=== PATIENT | female | born 1995 | race Caucasian/White ===

== ENCOUNTER 2018-08-15 12:02 | Emergency (ER) | payer OTHER ==
--- NOTE | 2018-08-15 12:38 | ED ---
Abdominal Pain HPI - General Chief Complaint: Abdominal Pain Stated Complaint: early /cramping Time Seen by Provider: 08/15/18 12:26 Source: patient, RN notes reviewed, old records reviewed Mode of arrival: ambulatory Limitations: no limitations - History of Present Illness Initial Comments: Patient is a 23-year-old female who presents emergency department today with chief complaint of left-sided abdominal pain. Early in . Patient that she is 2 days ago. Patient states that she is planning to follow- up with Dr. Meza but has not seen him yet. She is a female. Patient' s last menstrual period was the end of June, she's not sure exactly what date, approximately July 10. Patient reports no vaginal bleeding she does state she has vaginal discharge. She states that she's had no other symptoms at this time no nausea or vomiting or diarrhea. - Related Data Previous Rx's Medication Instructions Recorded Ykw-Uhev-Rvpci Acid 1 cap PO DAILY #20 cap 08/15/18 [-U Capsule (formulary)] Allergies Allergy/AdvReac Type Severity Reaction Status Date / Time No Known Allergies Allergy Verified 08/15/18 12:09 Review of Systems ROS Statement: Those systems with pertinent positive or pertinent negative responses have been documented in the HPI. ROS Other: All systems not noted in ROS Statement are negative. Past Medical History Additional Past Medical History / Comment(s): polycystic ovarian History of Any Multi-Drug Resistant Organisms: None Reported Past Surgical History: Appendectomy Additional Past Surgical History / Comment(s): cyst removal on ovaries Past Psychological History: No Psychological Hx Reported Smoking Status: Current some day smoker Past Alcohol Use History: Occasional Past Drug Use History: Marijuana General Exam - General Exam Comments Initial Comments: Patient is a pleasant 23-year-old female. Alert and oriented. Patient appears in no significant distress. Limitations: no limitations General appearance: alert, in no apparent distress Head exam: Present: atraumatic, normocephalic, normal inspection Eye exam: Present: normal appearance, PERRL, EOMI. Absent: scleral icterus, conjunctival injection, periorbital swelling ENT exam: Present: normal exam, mucous membranes moist Neck exam: Present: normal inspection. Absent: tenderness, meningismus, lymphadenopathy Respiratory exam: Present: normal lung sounds bilaterally. Absent: respiratory distress, wheezes, rales, rhonchi, stridor Cardiovascular Exam: Present: regular rate, normal rhythm, normal heart sounds. Absent: systolic murmur, diastolic murmur, rubs, gallop, clicks GI/Abdominal exam: Present: soft, normal bowel sounds. Absent: distended, tenderness, guarding, rebound, rigid External exam: Present: normal external exam Speculum exam: Present: normal speculum exam, vaginal discharge. Absent: cervical discharge, vaginal bleeding By manual exam: Present: normal by manual exam. Absent: cervical motion tenderness Extremities exam: Present: normal inspection, full ROM, normal capillary refill. Absent: tenderness, pedal edema, joint swelling, calf tenderness Back exam: Present: normal inspection Course Vital Signs 08/15/18 08/15/18 08/15/18 12:06 14:03 14:55 Temperature 97.7 F 98.1 F 98.1 F Pulse Rate 97 95 78 Respiratory 18 16 16 Rate Blood Pressure 108/72 110/64 105/62 O2 Sat by Pulse 100 100 Oximetry Medical Decision Making - Medical Decision Making Patient is a 23-year-old female who presents emergency department today with chief complaint of left-sided abdominal pain. Early in . Patient that she is 2 days ago. Patient states that she is planning to follow- up with Dr. Meza but has not seen him yet. She is a female. Patient' s last menstrual period was the end of June, she's not sure exactly what date, approximately July 10. Patient has no adnexal or abdominal tenderness. No bleeding on pelvic exam. US shows early gestational sac, recommended repeat US. Patient hcg level is 7400. Patient advised for close follow up with OB, starting and return parameters. Discussed repeat hcg level. - Lab Data Lab Results 08/15/18 08/15/18 08/15/18 Range/Units 12:42 12:42 12:43 HCG, Quant 7676.7 mIU/mL Urine Color Urine Appearance (Clear) Urine pH (5.0-8.0) Ur Specific [place] (1.001-1.035) Urine Protein (Negative) Urine Glucose (UA) (Negative) Urine Ketones (Negative) Urine Blood (Negative) Urine Nitrite (Negative) Urine Bilirubin (Negative) Urine Urobilinogen (<2.0) mg/dL Ur Leukocyte Esterase (Negative) Urine RBC (0-5) /hpf Urine WBC (0-5) /hpf Ur Squamous Epith Cells (0-4) /hpf Hyaline Casts (0-2) /lpf Urine Mucus (None) /hpf Urine HCG, Qual Detected (Not Detectd) Trichomonas Ag (Rapid) (Negative) Blood Type O Positive Blood Type Confirm Blood Type Recheck CABO Indicated 08/15/18 08/15/18 08/15/18 Range/Units 12:43 13:34 14:25 HCG, Quant mIU/mL Urine Color Yellow Urine Appearance Cloudy H (Clear) Urine pH 5.5 (5.0-8.0) Ur Specific [place] 1.019 (1.001-1.035) Urine Protein Negative (Negative) Urine Glucose (UA) Negative (Negative) Urine Ketones 2+ H (Negative) Urine Blood Negative (Negative) Urine Nitrite Negative (Negative) Urine Bilirubin Negative (Negative) Urine Urobilinogen <2.0 (<2.0) mg/dL Ur Leukocyte Esterase Negative (Negative) Urine RBC 1 (0-5) /hpf Urine WBC 4 (0-5) /hpf Ur Squamous Epith Cells 8 H (0-4) /hpf Hyaline Casts 1 (0-2) /lpf Urine Mucus Few H (None) /hpf Urine HCG, Qual (Not Detectd) Trichomonas Ag (Rapid) Negative (Negative) Blood Type Blood Type Confirm O Positive Blood Type Recheck - Radiology Data Radiology results: report reviewed Bicornate uterus. Probable early gestation. Short-term follow-up with positive or negative serial hCGs would be suggested. Disposition Clinical Impression: Abdominal pain affecting Disposition: HOME SELF-CARE Condition: Good Instructions: Abdominal Pain in (ED) Additional Instructions: Patient advised to repeat serum hCG level. Follow-up with [facility]. Take vitamins. Return to emergency department if any alarming signs or symptoms occur. Prescriptions: Cfa-Oqad-Kqldl Acid [-U Capsule (formulary)] 1 cap PO DAILY # 20 cap Is patient prescribed a controlled substance at d/c from ED?: No Referrals: None,Stated [Primary Care Provider] - 1-2 days Joselin Chow MD [STAFF PHYSICIAN] - 1-2 days Time of Disposition: 14:40
--- NOTE | 2018-08-15 13:37 | US ---
EXAMINATION TYPE: Transabdominal DATE OF EXAM: 01/13/18 COMPARISON: NONE CLINICAL HISTORY: Pain. LLQ pain with positive test EXAM PERFORMED: Transvaginal (TV) and Transabdominal (TA) EXAM MEASUREMENTS: GESTATIONAL AGE / DATING Physician Established: Not yet established Dates by LMP: (5 weeks/3 days) EDC: 04/14/2019 Dates by First Scan: No previous this is first scan Dates by Current Scan for: Unable to date by today's study MATERNAL ANATOMY Uterus: 8.1 x 4.5 x 8.6 cm Right Ovary: not identified Left Ovary: 3.1 x 2.3 x 3.1 cm Post CDS / Adnexa: small amount of free fluid Presence of corpus luteal cyst: there are two lesions on left ovary with peripheral flow, one measure s 1.8 x 1.5 x 1.6 cm, and the second one measures 2.1 x 1.5 x 1.9 cm. GESTATION / SURVEY CRL: not identified MSD: measures out of range Yolk Sac (normal less than 6mm): 0.2 cm Date of LMP: 07/08/2018 Beta HcG (if available): Not available at this time Uterus appears to be bicornuate. In the left horn there is a gestational sac and yolk sac, no p ole seen at this time. The left ovary contains two complex lesions. Probable early IUP, follow up rec ommended. IMPRESSION: 1. BICORNUATE UTERUS. 2. PROBABLE EARLY GESTATION. SHORT-TERM FOLLOW-UP +/- SERIAL BETA HCGS WOULD BE SUGGESTED.
[2018-08-15 14:05] VITALS: RESP 16; TEMP 98.1
[2018-08-15 14:27] LABS: Appearance,Urine Cloudy (Clear); Bilirubin,Urine Negative (Negative); Blood,Urine Negative (Negative); Color,Urine Yellow; Glucose,Urine (UA) Negative (Negative); Hyaline Casts,Urine 1 /lpf (0-2); Ketones,Urine 2+ (Negative); Leukocyte Esterase,Urine Negative (Negative); Mucus,Urine Few /hpf; Nitrite,Urine Negative (Negative); PH, Urine 5.5 (5.0-8.0); Protein,Urine Negative (Negative); RBC,Urine 1 /hpf (0-5); Specific Gravity,Urine 1.019 (1.001-1.035); Squamous Epithelial Cell,Urine 8 /hpf (0-4); Urobilinogen,Urine <2.0 mg/dL (<2.0); WBC,Urine 4 /hpf (0-5)
[2018-08-15 14:56] VITALS: BP 105/62; PULSE 78
[2018-08-16 12:08] LABS: C. trachomatis,PCR Negative (Neg,Equiv); Chlamydia trachomatis Source Vagina
[2018-08-16 12:09] LABS: N. gonorrhoeae,PCR Negative (Neg,Equiv); Neisseria Source Vagina
== END 2018-08-15 14:56 | disposition home or self-care (01) ==
LOC: EC 12:02
DX: O99.89 Other specified diseases and conditions complicating pregnancy, childbirth and the puerperium (principal); R10.9 Unspecified abdominal pain; N89.8 Other specified noninflammatory disorders of vagina; O34.00 Maternal care for unspecified congenital malformation of uterus, unspecified trimester; Q51.3 Bicornate uterus; O99.330 Smoking (tobacco) complicating pregnancy, unspecified trimester; F17.200 Nicotine dependence, unspecified, uncomplicated; Z90.49 Acquired absence of other specified parts of digestive tract; Z3A.00 Weeks of gestation of pregnancy not specified
CPT/HCPCS: 36415; 76801; 76817; 81001; 81025; 84702; 86900; 86901; 87070; 87205; 87491; 87591; 87808; 99284

== ENCOUNTER → 2018-08-26 | Outpatient (CLI) | payer OTHER ==
--- NOTE | 2018-08-27 07:15 | US ---
EXAMINATION TYPE: Transabdominal DATE OF EXAM: 01/13/18 COMPARISON: US 2017 CLINICAL HISTORY: Z36 Confirm dates. Confirm dates, 1 EXAM PERFORMED: Transabdominal (TA) EXAM MEASUREMENTS: GESTATIONAL AGE / DATING Physician Established: (7 weeks/2 days) EDC: 04/12/2019 Dates by LMP: (7 weeks/2 days) EDC: 04/12/2019 Dates by First Scan: Unable to date by 1st scan Dates by Current Scan for: ( 6 weeks/6 days) EDC: 04/15/2019 MATERNAL ANATOMY Uterus: 9.2 x 5.0 x 7.3cm, anteverted, possible bicornuate uterus Right Ovary: 2.1 x 1.3 x 1.9cm Left Ovary: 2.8 x 1.9 x 2.8cm Post CDS / Adnexa: wnl Presence of free fluid: no Presence of corpus luteal cyst: Left ovary: 2 lesions measuring 1.8 x 2.1 x 2.0cm and 2.0 x 1.6 x 1.6 cm Presence of subchorionic bleed: no GESTATION / SURVEY CRL: 0.9cm (6 weeks/6 days) Yolk Sac (normal less than 6mm): 3.2mm Heart Rate: 127 bpm Rhythm: Normal IUP: Viable IUP Date of LMP: 07/06/2018 Viable single IUP measuring 6 weeks 6 days with a heart rate of 127bpm and an estimated delivery date of 04/15/2019. IMPRESSION: Viable single IUP measuring 6 weeks 6 days with a heart rate of 127bpm and an estimated delivery date of 04/15/2019.
== END ==
LOC: RADUSMAIN 17:55
PROVIDERS: ATTEND Obstetrics & Gynecology
DX: Z36.89 Encounter for other specified antenatal screening (principal); Z3A.01 Less than 8 weeks gestation of pregnancy
CPT/HCPCS: 76801

== ENCOUNTER → 2018-11-16 | Outpatient (CLI) | payer OTHER ==
--- NOTE | 2018-11-16 12:47 | US ---
EXAMINATION TYPE: US OB anatomy transabd DATE OF EXAM: 11/16/2018 COMPARISON: US first trimester 2018 HISTORY: Large for dates 2nd trimester O36.62X0 Routine anatomy scan, 1 TECHNIQUE: Transabdominal (TA) EXAM MEASUREMENTS: GESTATIONAL AGE / DATING Physician Established: (18 weeks/4 days) EDC: 04/15/2019 Dates by LMP: Unknown Dates by First Scan: (18 weeks/4 days) EDC: 04/15/2019 Dates by Current Scan for: (18 weeks/5 days) EDC: 04/14/2019 SURVEY IUP: Single PLACENTA: Fundal/Posterior PREVIA: No previa GREGG: 10.2 cm Normal CERVICAL LENGTH (transabdominal: norm > 3.0cm): 3.2 cm BIOMETRY PRESENTATION: Vertex LIE: Longitudinal BPD: 4.4 cm 19 weeks / 2 days HC: 15.8 cm 18 weeks / 5 days AC: 13.6 cm 19 weeks / 0 days FL: 2.8 cm 18 weeks / 3 days ESTIMATED WEIGHT IN GRAMS: 255.4 grams ESTIMATED WEIGHT IN LBS/OZ: 0 lbs. 9 oz. WEIGHT PERCENTAGE BASED ON ESTABLISHED DATE: 56 % HC/AC: 1.16 Normal FL/AC: 20.38 HEART RATE: 147 bpm RHYTHM: Normal ANATOMY SEEN (within normal limits): * Lateral Vent (< 1 cm) 0.8 cm * Cisterna Magna (< 1.1 cm) 0.5 cm * Nuchal Fold (< 0.6 cm) 0.2 cm * Cerebellum (varies with age) 1.8 cm Choroid Plexus (bilateral) Midline Falx Cavus Septi Pellucidi Four Chamber Heart Outflow tracts: LVOT/RVOT Stomach Situs Nose / Lips Diaphragm Kidneys (bilateral) Bladder Cord Insert Three Vessel Cord Longitudinal Spine Transverse Spine Arms (bilateral) Legs (bilateral) Single live intrauterine gestation is redemonstrated. Normal cephalad presentation to fetus is seen. No cervical thinning is noted. No placenta previa is appreciated. Amniotic fluid index is calculated within normal limits. biometry measurements are congruent and felt within normal limits with satisfactory interval gr owth noted. Detailed anatomical survey shows no suspicious abnormality during real-time scanning. Sub optimal evaluation of left ventricular outflow track is seen on images saved as well as nose an d lips and bilateral kidneys. IMPRESSION: As above
== END | disposition home or self-care (01) ==
LOC: RADUSWWP 10:51
PROVIDERS: ATTEND Obstetrics & Gynecology
DX: O36.62X0 Maternal care for excessive fetal growth, second trimester, not applicable or unspecified (principal); Z3A.18 18 weeks gestation of pregnancy
CPT/HCPCS: 76811

== ENCOUNTER 2019-04-21 18:25 | Inpatient (IN) | payer OTHER ==
[2019-04-21] MEDS ORDERED: METHYLERGONOVINE 0.2 MG/ML 1 ML AMP IM PRN (19:41)
[2019-04-21] MEDS ORDERED: LIDOCAINE 0.5% (PF) 5 MG/ML (50 ML SDV) SQ PRN (19:41)
[2019-04-21] MEDS ORDERED: OXYTOCIN 10 UNIT/ML 1 ML VIAL IM PRN (19:41)
[2019-04-21] MEDS ORDERED: TERBUTALINE 1 MG/ML VIAL SQ PRN (19:41)
[2019-04-21] MEDS ORDERED: CARBOPROST TROMETHAMINE 250 MCG/ML 1 ML AMP IM PRN (19:41)
[2019-04-21] MEDS ORDERED: OXYTOCIN 30 UNITS/500 ML NS 30 UNIT in SALINE 1 500ML.BAG IV SCH (19:45)
[2019-04-21 19:55] LABS: Basophils % (A) 0 %; Eosinophils # (A) 0.3 k/uL (0-0.7); Eosinophils % (A) 2 %; HCT 34.3 % (34.0-46.0); HGB 11.7 gm/dL (11.4-16.0); Lymphocytes # (A) 1.8 k/uL (1.0-4.8); Lymphocytes % (A) 11 %; MCH 30.2 pg (25.0-35.0); MCHC 34.1 g/dL (31.0-37.0); MCV 88.6 fL (80.0-100.0); Mean Platelet Volume 8.8; Monocytes # (A) 0.6 k/uL (0-1.0); Monocytes % (A) 4 %; Neutrophils # (A) 13.3 k/uL (1.3-7.7); Neutrophils % (A) 82 %; Platelet Count 133 k/uL (150-450); RBC 3.87 m/uL (3.80-5.40); RDW 14.4 % (11.5-15.5); WBC 16.2 k/uL (3.8-10.6)
[2019-04-21 19:56] VITALS: BMI 29.3
[2019-04-21] MEDS: LACTATED RINGERS 1,000 ML IV SCH ×2 (20:06→20:57)
[2019-04-21] MEDS ORDERED: fentaNYL (PF) 50 MCG/ML 2 ML AMP ONE (20:30)
[2019-04-21] MEDS ORDERED: LACTATED RINGERS 1,000 ML BAG IV ONE (20:30)
[2019-04-21] MEDS ORDERED: OXYTOCIN 10 UNIT/ML 1 ML VIAL ONE (20:30)
[2019-04-21] MEDS ORDERED: MORPHINE SULFATE (PF) 0.3 MG/0.3 ML SYR ONE (20:30)
[2019-04-21] MEDS ORDERED: NALBUPHINE 10 MG/ML (1 ML AMP) ONE (20:30)
[2019-04-21] MEDS ORDERED: CITRIC ACID-SODIUM CITRATE 15 ML CUP PO ONE (21:06)
[2019-04-21] MEDS ORDERED: ceFAZolin IN SWFI 2 GM/20 ML SYRINGE IVP ONE (21:06)
[2019-04-21] MEDS ORDERED: ZOLPIDEM 5 MG TAB PO PRN (21:49)
[2019-04-21] MEDS ORDERED: LANOLIN CREAM 5 GM TUBE TOPICAL PRN (21:49)
[2019-04-21] MEDS ORDERED: diphenhydrAMINE 50 MG/ML 1 ML VIAL IVP PRN ×2 (21:49)
[2019-04-21] MEDS ORDERED: diphenhydrAMINE 50 MG CAP PO PRN (21:49)
[2019-04-21] MEDS ORDERED: ACETAMINOPHEN TAB 325 MG TAB PO PRN (21:49)
[2019-04-21] MEDS ORDERED: METOCLOPRAMIDE 5 MG/ML 2 ML VIAL IVP PRN (21:49)
[2019-04-21] MEDS ORDERED: ONDANSETRON 4 MG/2 ML VIAL IVP PRN (21:49)
[2019-04-21] MEDS ORDERED: diphenhydrAMINE 25 MG CAP PO PRN (21:49)
[2019-04-21] MEDS ORDERED: NALOXONE 0.4 MG/ML 1 ML VIAL IV PRN (21:49)
--- NOTE | 2019-04-21 21:54 | P.HPOB ---
History of Present Illness H&P Date: 04/21/19 Chief Complaint: labor 23-year-old presents at 40 weeks and 6 days in labor. She is kendall every 2-4 minutes. heart tones are 135 with moderate variability and reactive. Her cervix was 2 cm dilated when she initially presented to triage and changed to 3 cm, 90% effaced, and -2 station. Review of Systems All systems: negative Constitutional: Denies chills, Denies fever Eyes: denies blurred vision, denies pain Ears, nose, mouth and throat: Denies headache, Denies sore throat Cardiovascular: Denies chest pain, Denies shortness of breath Respiratory: Denies cough Gastrointestinal: Denies abdominal pain, Denies diarrhea, Denies nausea, Denies vomiting Genitourinary: Denies dysuria, Denies hematuria Musculoskeletal: Denies myalgias Integumentary: Denies pruritus, Denies rash Neurological: Denies numbness, Denies weakness Psychiatric: Denies anxiety, Denies depression Endocrine: Denies fatigue, Denies weight change Past Medical History Additional Past Medical History / Comment(s): polycystic ovarian History of Any Multi-Drug Resistant Organisms: None Reported Past Surgical History: Appendectomy Additional Past Surgical History / Comment(s): cyst removal on ovaries Past Anesthesia/Blood Transfusion Reactions: No Reported Reaction Past Psychological History: No Psychological Hx Reported Smoking Status: Current every day smoker Past Alcohol Use History: Occasional Past Drug Use History: Marijuana - Past Family History Mother Family Medical History: Diabetes Mellitus Father Family Medical History: Blood Disorder Additional Family Medical History / Comment(s): stated per pt, "father from blood clots." Medications and Allergies Home Medications Medication Instructions Recorded Confirmed Type Acyclovir 400 mg PO TID 03/30/19 04/21/19 History Allergies Allergy/AdvReac Type Severity Reaction Status Date / Time No Known Allergies Allergy Verified 04/21/19 18:32 Exam Osteopathic Statement: *. No significant issues noted on an osteopathic structural exam other than those noted in the History and Physical/Consult. Vital Signs Temp Pulse Resp BP 04/21/19 19:41 98.2 F 20 04/21/19 18:33 98.2 F 88 18 128/84 Intake and Output 04/21/19 04/21/19 04/21/19 06:59 14:59 22:59 Other: Weight 77.564 kg Heart: Regular rate and rhythm Lungs: Clear to auscultation bilaterally Abdomen: Soft, nontender Extremities: Negative Homans sign Results Result Diagrams: 04/21/19 19:43 Abnormal Lab Results - Last 24 Hours (Table) 04/21/19 Range/Units 19:43 WBC 16.2 H (3.8-10.6) k/uL Plt Count 133 L (150-450) k/uL Neutrophils # 13.3 H (1.3-7.7) k/uL Assessment and Plan (1) Normal labor Current Visit: Yes Status: Acute Code(s): O80 - ENCOUNTER FOR FULL-TERM UNCOMPLICATED DELIVERY; Z37.9 - OUTCOME OF DELIVERY, UNSPECIFIED SNOMED Code(s): 45106437 (2) Post-dates Current Visit: Yes Status: Acute Code(s): O48.0 - POST-TERM SNOMED Code(s): 37245016 Plan: 1. Admit to family place 2. Epidural for pain management 3. Anticipate normal vaginal delivery
--- NOTE | 2019-04-21 21:58 | P.OP ---
Date of Procedure: 04/21/19 Preoperative Diagnosis: 1. at 40 weeks and 6 days 2. Meconium-stained fluid 3. Category 3 tracing Postoperative Diagnosis: 1. at 40 weeks and 6 days 2. Meconium-stained fluid 3. Category 3 tracing Procedure(s) Performed: Primary low transverse Anesthesia: epidural Surgeon: Nikki Noriega Fisher Terrapin #1: Quin Lloyd Estimated Blood Loss (ml): 600 IV fluids (ml): 1,000 Urine output (ml): 200 Pathology: other (Placenta) Condition: stable Disposition: floor Indications for Procedure: 23-year-old presented at 40 weeks and 6 days in labor. Her cervix was 3 cm dilated, 90% effaced, -2 station. She is kendall irregularly every 2-4 minutes. heart tones were 140 with moderate variability and reactive. Amniotomy was performed and meconium stained fluid was seen. After she did get an epidural the heart tones went down to the 60s with slow return to baseline over 5 minutes. She had a few variable decelerations prior to this and with the meconium-stained fluid the decision was made to perform section. Informed consent was obtained and section was called. Operative Findings: Viable infant weight 6 lbs. 9 oz., Apgars pending Description of Procedure: Patient was taken to the operating room where spinal anesthesia was found be adequate. She was prepped and draped in normal sterile fashion in dorsal supine position with a leftward tilt. Pfannenstiel skin incision was made the scalpel and carried through to the underlying layer of fascia with the scalpel. Fascia was incised in midline and carried bilaterally with the Sanders scissors. The superior aspect of the fascial incision was grasped with Astrid clamps elevated and the underlying rectus muscles dissected off with the Sanders's. Attention was then turned to inferior aspect of same incision which in a similar fashion was grasped tented up and the underlying rectus muscles dissected off with the Sanders's. The rectus muscles were the midline and the peritoneum was identified tented up and entered sharply with the scalpel. The incision was extended superiorly and inferiorly with good visualization of the bladder. The bladder blade was inserted. A low transverse incision was then made on the uterus with the scalpel. This was carried bilaterally and digital manner. 's head delivered atraumatically, nose and mouth bulb suctioned, cord clamped and cut, handed off to waiting nurses. Apgars pending, weight 6 lbs. 9 oz. Placenta delivered manually, intact with three-vessel cord. The uterus is exteriorized and cleared of all clots and debris. The uterine incision was closed with 0 Vicryl in a running locked fashion. Second layer of the same sutures used in imbricating fashion to obtain excellent hemostasis. Both ovaries and tubes appeared normal. The uterus was placed back into the abdomen. The peritoneum was reapproximated using 2-0 Vicryl in a running fashion. The muscles were reapproximated using 2-0 Vicryl in interrupted fashion. The fascia was reapproximated using 0 Vicryl in a running fashion. The subcutaneous tissues closed with 3-0 Vicryl running fashion. The skin was closed emilia. Patient tolerated the procedure well, sponge and instrument counts were correct times 2 and she was taken to the recovery room in stable condition.
[2019-04-21] MEDS ORDERED: OXYTOCIN 20 UNITS/1000 ML NS 1,000 ML IV SCH (22:00)
[2019-04-21] MEDS ORDERED: LACTATED RINGERS 1,000 ML IV SCH (22:00)
[2019-04-22] MEDS: KETOROLAC 30 MG/ML 1 ML VIAL IVP PRN ×3 (05:24→17:11)
--- NOTE | 2019-04-22 06:06 | P.PNOBGPC ---
Subjective - Subjective Patient reports: Reports appetite normal, Reports voiding normally, Reports pain well controlled, Reports ambulating normally : doing well Objective - Vital Signs Latest vital signs: Vital Signs Temp Pulse Resp BP BP Pulse Ox 04/22/19 04:00 98.2 F 92 18 109/59 99 04/22/19 00:00 98.1 F 106 H 18 119/56 99 04/21/19 23:30 103 H 18 107/54 04/21/19 23:24 110 H 110/56 04/21/19 23:00 98.2 F 107 H 18 115/50 04/21/19 22:48 109 H 18 120/65 04/21/19 22:45 98.8 F 107 H 18 113/53 100 04/21/19 22:30 97.6 F 98 20 81/32 100 04/21/19 22:25 101/54 04/21/19 22:23 104/48 04/21/19 22:20 96 18 86/61 100 04/21/19 22:14 97.4 F L 92 18 101/54 100 04/21/19 22:12 97.4 F L 91 18 101/54 100 04/21/19 22:10 96/55 04/21/19 22:08 86 18 92/53 100 04/21/19 22:05 106/53 04/21/19 22:03 128/53 04/21/19 22:00 97.0 F L 83 18 80/40 99 04/21/19 21:56 100 91/43 04/21/19 19:41 98.2 F 20 04/21/19 18:33 98.2 F 88 18 128/84 Intake and Output 04/21/19 04/21/19 04/22/19 14:59 22:59 06:59 Intake Total 2000 1000 Output Total 800 1750 Balance 1200 -750 Intake: IV 2000 1000 Oxytocin 20 Units/1000 ml 1000 Ns 1,000 ml @ Per Protocol IV .Q0M [facility] Rx#: [id number] Output: Urine 200 1750 Uretheral (Armas) 300 Estimated Blood Loss 600 Other: Voiding Method Indwelling Catheter Weight 77.564 kg - Exam Lungs: bilateral: normal Chest: Normal S1, Normal S2 Extremities: Present: normal Abdomen: Present: normal appearance, soft. Absent: distention, tenderness Incision: Present: normal, dry, intact Uterus: Present: normal, firm - Labs Labs: Abnormal Lab Results - Last 24 Hours (Table) 04/21/19 Range/Units 19:43 WBC 16.2 H (3.8-10.6) k/uL Plt Count 133 L (150-450) k/uL Neutrophils # 13.3 H (1.3-7.7) k/uL Assessment and Plan Assessment: Postoperative day #1. Patient is resting without complaints. Vital signs are stable she is afebrile. Uterus is firm nontender and her incision is intact and dry. Plan today is to advance diet, encourage ambulation, and check a CBC. (1) delivery delivered Current Visit: Yes Status: Acute Code(s): O82 - ENCOUNTER FOR DELIVERY WITHOUT INDICATION SNOMED Code(s): 352276116
[2019-04-22 07:18] LABS: Basophils % (A) 0 %; Eosinophils % (A) 0 %; HCT 29.3 % (34.0-46.0); Lymphocytes # (A) 0.6 k/uL (1.0-4.8); Lymphocytes % (A) 5 %; MCH 29.6 pg (25.0-35.0); MCHC 33.2 g/dL (31.0-37.0); Mean Platelet Volume 9.3; Monocytes # (A) 0.4 k/uL (0-1.0); Monocytes % (A) 3 %; Neutrophils % (A) 91 %; Platelet Count 106 k/uL (150-450); RBC 3.29 m/uL (3.80-5.40); RDW 14.6 % (11.5-15.5); WBC 12.1 k/uL (3.8-10.6)
[2019-04-22 07:29] LABS: HGB 9.7 gm/dL (11.4-16.0)
--- NOTE | 2019-04-22 08:37 | P.PN ---
Progress Note - Text Progress Note Date: 04/22/19 Pt w/ moderate pain. Some pruritis. Denies headache or weakness. Epidural site clean and dry. A/P POD#1 s/p w/ epidural duramorph - doing well
[2019-04-22] MEDS: SENNOSIDES-DOCUSATE SODIUM 1 EACH TAB PO SCH ×2 (11:28→19:57)
[2019-04-22] MEDS: HYDROcodone/APAP 7.5-325MG 1 EACH TAB PO PRN ×2 (15:41→21:24)
[2019-04-22] MEDS: IBUPROFEN 600 MG TAB PO PRN (23:54)
[2019-04-23] MEDS: SIMETHICONE 80 MG CHEWABLE PO PRN ×2 (00:04→07:58)
[2019-04-23] MEDS: HYDROcodone/APAP 7.5-325MG 1 EACH TAB PO PRN ×3 (04:24→20:23)
--- NOTE | 2019-04-23 06:08 | P.PNOBGPC ---
Subjective - Subjective Patient reports: Reports appetite normal, Reports voiding normally, Reports pain well controlled, Reports ambulating normally : doing well Objective - Vital Signs Latest vital signs: Vital Signs Temp Pulse Resp BP BP Pulse Ox 04/23/19 00:00 97.8 F 89 14 114/74 99 04/22/19 16:00 97.8 F 88 16 114/67 04/22/19 11:54 97.6 F 88 18 112/68 98 04/22/19 07:40 98.1 F 90 16 104/65 Intake and Output 04/22/19 04/22/19 04/23/19 14:59 22:59 06:59 Other: # Voids 1 1 1 - Exam Lungs: bilateral: normal Chest: Normal S1, Normal S2 Extremities: Present: normal Abdomen: Present: normal appearance, soft. Absent: distention, tenderness Incision: Present: normal, dry, intact Uterus: Present: normal, firm - Labs Labs: Abnormal Lab Results - Last 24 Hours (Table) 04/22/19 Range/Units 06:36 WBC 12.1 H (3.8-10.6) k/uL RBC 3.29 L (3.80-5.40) m/uL Hgb 9.7 L D (11.4-16.0) gm/dL Hct 29.3 L (34.0-46.0) % Plt Count 106 L (150-450) k/uL Neutrophils # 11.0 H (1.3-7.7) k/uL Lymphocytes # 0.6 L (1.0-4.8) k/uL Assessment and Plan Assessment: Post operative day #2. Patient is resting without new complaints. She is having some abdominal discomfort and exam shows her abdomen be mildly distended consistent with a mild ileus. She states she is passing gas and tolerating regular diet. CBC yesterday was fine. Vital signs are stable she is afebrile. Incision is intact and dry. My impression this is a mild postoperative ileus which appears to be resolving but I encouraged her to ambulate today. Continue routine postoperative care most likely discharge home tomorrow if continues to improve. Dr. Noriega we'll see tomorrow. (1) delivery delivered Current Visit: Yes Status: Acute Code(s): O82 - ENCOUNTER FOR DELIVERY WITHOUT INDICATION SNOMED Code(s): 885281828
[2019-04-23] MEDS: SENNOSIDES-DOCUSATE SODIUM 1 EACH TAB PO SCH ×2 (07:56→19:35)
[2019-04-23] MEDS: IBUPROFEN 600 MG TAB PO PRN ×2 (07:57→17:48)
--- NOTE | 2019-04-23 08:13 | P.MSEPDOC ---
Presenting Problems - Arrival Data Date of Arrival on Unit: 04/21/19 Time of Arrival on Unit: 19:30 Mode of Transport: Wheelchair - Complaint OB-Reason for Admission/Chief Complaint: Possible Onset of Labor Comment: 04/21/19 1400 Medical History - Information : 1 Para: 0 Term: 0 : 0 Abortions: Spontaneous or Elective: 0 Number of Living Children: 0 - Gestational Age Gestational Age by DAVID (wks/days): 42 Weeks and 0 Days - History Complications: Smoker Sexually Transmitted Diseases: HSV Review of Systems - Review of Systems Constitutional: No problems Breast: No problems ENT: No problems Cardiovascular: No problems Respiratory: No problems Gastrointestinal: No problems Genitourinary: No problems Musculoskeletal: No problems Neurological: No problems Skin: No problems Vital Signs - Temperature Temperature: 97.9 F Temperature Source: Oral - Pulse Right Sitting Pulse Rate: 98 Pulse Assessment Method: Automatic Cuff - Respirations Respiratory Rate: 16 Oxygen Delivery Method: Room Air O2 Sat by Pulse Oximetry: 97 - Blood Pressure Right Arm Blood Pressure: 108/67 Blood Pressure Mean: 80 Blood Pressure Source: Automatic Cuff Right Calf Blood Pressure: 114/67 Blood Pressure Mean: 82 Blood Pressure Source: Automatic Cuff Medical Screen Scoring (Pre) - Cervical Exam Dilation: 1-3 cm = 1 Effacement: More than 50% = 2 Membranes: Intact - Uterine Contractions Frequency: > 5 minutes apart = 1 Duration: > 40 seconds = 2 Intensity: N/A - Maternal Vital Signs Maternal Temperature: N/A Maternal Blood Pressure: N/A Signs of Preeclampsia: N/A Maternal Respirations: N/A - Maternal Trauma Maternal Trauma: N/A - Assessment - Baby A Baseline FHR: 140 Heart Rate - NICHD Category: Category I (Normal) = 0 NST: Reactive Position: N/A Station: N/A - Total Score - Baby A Total Score - Baby A: 6 - Total Score - Baby B Total Score - Baby B: 6 - Total Score - Baby C Total Score - Baby C: 6 - Level of Risk - Baby A Level of Risk - Baby A: Medium (6-9) - Level of Risk - Baby B Level of Risk - Baby B: Medium (6-9) - Level of Risk - Baby C Level of Risk - Baby C: Medium (6-9) Physician Notification (Pre) - Physician Notified New Order Received: No Disposition - Disposition OB Disposition: Observe, Triage I agree with the RN Medical Screening Exam: Yes Risk & Benefit of care provided described in d/c instruction: Yes Diagnosis: ENCOUNTER FOR FULL-TERM UNCOMPLICATED DELIVERY
[2019-04-24] MEDS: IBUPROFEN 600 MG TAB PO PRN ×2 (01:22→09:25)
[2019-04-24] MEDS: HYDROcodone/APAP 7.5-325MG 1 EACH TAB PO PRN (03:33)
[2019-04-24 07:47] VITALS: BP 112/82; PULSE 94; RESP 16; TEMP 97.6
[2019-04-24] MEDS: SENNOSIDES-DOCUSATE SODIUM 1 EACH TAB PO SCH (07:51)
--- NOTE | 2019-04-24 08:50 | P.DS ---
Providers Date of admission: 04/21/19 19:30 Expected date of discharge: 04/24/19 Attending physician: Declan Newsome Primary care physician: Stated None - Discharge Diagnosis(es) (1) Normal labor Current Visit: Yes Status: Resolved (2) Post-dates Current Visit: Yes Status: Resolved (3) Status post primary low transverse section Current Visit: Yes Status: Acute Hospital Course: Patient presented in labor postdates. She underwent a primary low transverse C- section for heart tones and meconium fluid. Her postoperative course went well. She is voiding and ambulating without difficulty. Pain is well- controlled. She did have some gas pain and postoperative day #2 but then after passing lots of flatus she feels much better today. She is tolerating regular diet. Incision is clean, dry, intact. She will be discharged home postoperative day #3 in stable condition to follow-up with Dr. Newsome in one week. Plan - Discharge Summary New Discharge Prescriptions: New Ibuprofen [Motrin] 600 mg PO Q6HR PRN #40 tab PRN Reason: Mild Pain Or Fever >= 100.5 HYDROcodone/APAP 7.5-325MG [[place] 7.5-325] 1 each PO Q6H PRN #12 tab PRN Reason: Severe Pain No Action Acyclovir 400 mg PO TID Discharge Medication List Acyclovir 400 mg PO TID 03/30/19 [History] HYDROcodone/APAP 7.5-325MG [[place] 7.5-325] 1 each PO Q6H PRN #12 tab 04/23/19 [Rx] Ibuprofen [Motrin] 600 mg PO Q6HR PRN #40 tab 04/23/19 [Rx] Follow up Appointment(s)/Referral(s): Declan Newsome MD [STAFF PHYSICIAN] - 1 Week Patient Instructions/Handouts: (DC) Activity/Diet/Wound Care/Special Instructions: No heavy lifting or strenuous activity for 6 weeks. No intercourse or anything per vagina for 6 weeks. Please call if any fever, chills, excessive vaginal bleeding, and/or abdominal pain. Discharge Disposition: HOME SELF-CARE
== END 2019-04-24 12:07 | disposition home or self-care (01) | DRG 787 ==
LOC: FBPOP 18:25 → 4FBP 19:30
PROVIDERS: ADMIT Obstetrics & Gynecology; ATTEND Obstetrics & Gynecology
PROC: 10D00Z1 Extraction of Products of Conception, Low, Open Approach (ICD-10-PCS; principal; 2019-04-21 20:30)
DX: O48.0 Post-term pregnancy (principal); K56.7 Ileus, unspecified; O76 Abnormality in fetal heart rate and rhythm complicating labor and delivery; O77.0 Labor and delivery complicated by meconium in amniotic fluid; O99.284 Endocrine, nutritional and metabolic diseases complicating childbirth; E28.2 Polycystic ovarian syndrome; Z3A.40 40 weeks gestation of pregnancy; Z37.0 Single live birth; O99.334 Smoking (tobacco) complicating childbirth; F17.200 Nicotine dependence, unspecified, uncomplicated; L29.9 Pruritus, unspecified; Z79.899 Other long term (current) drug therapy; Z83.3 Family history of diabetes mellitus; Z83.2 Family history of diseases of the blood and blood-forming organs and certain disorders involving the immune mechanism
CPT/HCPCS: 59025; 85025; 86850; 86900; 86901; 88307; 99213

== ENCOUNTER → 2020-08-25 | Outpatient (CLI) | payer OTHER ==
--- NOTE | 2020-08-25 10:56 | XR ---
EXAMINATION TYPE: XR wrist complete 4 views RT, XR hand complete 3 views RT DATE OF EXAM: 08/25/2020 COMPARISON: NONE HISTORY: 25-year-old female S66.219A, M65.4 FINDINGS: Wrist: The radiocarpal and distal radioulnar joint as well as the midcarpal compartment are intact. No acute fracture, subluxation, dislocation. Hand: Joint spaces are maintained. No acute fracture, subluxation, dislocation. No periostitis or osteolysi s. No soft tissue calcifications. IMPRESSION: Wrist and hand without acute osseous abnormality seen.
== END | disposition home or self-care (01) ==
LOC: RADXRMAIN 10:30
PROVIDERS: ATTEND Emergency Medicine
DX: M65.4 Radial styloid tenosynovitis [de Quervain] (principal); S66.219A Strain of extensor muscle, fascia and tendon of unspecified thumb at wrist and hand level, initial encounter

== ENCOUNTER 2022-05-08 21:08 | Emergency (ER) | payer BC, OTHER ==
[2022-05-08 21:15] VITALS: BP 115/72; PULSE 84; RESP 20; TEMP 98.5
--- NOTE | 2022-05-08 21:34 | ED ---
Female Urogenital HPI - General Chief complaint: Vaginal Bleeding Stated complaint: pregant w/bleeding Time Seen by Provider: 05/08/22 21:33 Source: patient, family Mode of arrival: ambulatory Limitations: no limitations - History of Present Illness Initial comments: This patient is a 26-year-old woman, , presenting with bilateral leg cramping and intermittent bleeding. The patient states the amount of bleeding is less than a period. She has not passed any clots. She found out she was over the weekend, she took 4 home tests that were positive. Patient states that the cramping is moderate intensity, intermittent, she states it is currently not present she declines analgesic during history and physical. No fever or chills. No change in urination or bowel movements. No leg pain or swelling. MD Complaint: vaginal bleeding Onset/Timin -: days(s) Severity: moderate Quality: cramping Consistency: intermittent Improves with: none Worsens with: none Patient : Yes - Related Data : 2 Para: 1 Home Medications Medication Instructions Recorded Confirmed Citalopram Hydrobromide 40 mg PO HS 05/08/22 05/08/22 [Citalopram HBr] Dicyclomine HCl 10 mg PO TID PRN 05/08/22 05/08/22 Ferrous Sulfate [Feosol] 325 mg PO HS 05/08/22 05/08/22 Allergies Allergy/AdvReac Type Severity Reaction Status Date / Time No Known Allergies Allergy Verified 05/08/22 22:26 Review of Systems ROS Statement: Those systems with pertinent positive or pertinent negative responses have been documented in the HPI. ROS Other: All systems not noted in ROS Statement are negative. Constitutional: Denies: fever, chills Respiratory: Denies: cough, dyspnea Cardiovascular: Denies: chest pain, palpitations Gastrointestinal: Reports: as per HPI, abdominal pain. Denies: nausea, vomiting, diarrhea, constipation Genitourinary: Reports: as per HPI, abnormal menses. Denies: urgency, dysuria, frequency, hematuria, discharge Musculoskeletal: Denies: back pain Skin: Denies: rash Neurological: Denies: headache, weakness Hematological/Lymphatic: Denies: easy bleeding Past Medical History Additional Past Medical History / Comment(s): polycystic ovarian, IBS History of Any Multi-Drug Resistant Organisms: None Reported Past Surgical History: Appendectomy, Section Additional Past Surgical History / Comment(s): cyst removal on ovaries Past Anesthesia/Blood Transfusion Reactions: No Reported Reaction Past Psychological History: Anxiety, Depression Smoking Status: Vaper Past Alcohol Use History: Occasional Past Drug Use History: Marijuana - Past Family History Mother Family Medical History: Diabetes Mellitus Father Family Medical History: Blood Disorder Additional Family Medical History / Comment(s): stated per pt, "father passed aw ay from blood clots." General Exam Limitations: no limitations General appearance: alert, in no apparent distress Head exam: Present: atraumatic, normocephalic Eye exam: Present: normal appearance. Absent: scleral icterus, conjunctival injection Respiratory exam: Present: normal lung sounds bilaterally. Absent: respiratory distress, wheezes, rales, rhonchi, stridor Cardiovascular Exam: Present: regular rate, normal rhythm, normal heart sounds. Absent: systolic murmur, diastolic murmur, rubs, gallop GI/Abdominal exam: Present: soft. Absent: distended, tenderness, guarding, rebound, rigid, mass Extremities exam: Present: normal inspection, normal capillary refill. Absent: pedal edema, calf tenderness Back exam: Present: normal inspection. Absent: CVA tenderness (R), CVA tenderness (L) Neurological exam: Present: alert Skin exam: Present: warm, dry, intact, normal color. Absent: rash Course Vital Signs 05/08/22 21:10 Temperature 98.5 F Pulse Rate 84 Respiratory 20 Rate Blood Pressure 115/72 O2 Sat by Pulse 98 Oximetry Medical Decision Making - Medical Decision Making Patient's 26-year-old woman with some first trimester vaginal bleeding. The hCG is very low and I discussed with the patient that we probably will not find anything significant on the ultrasound. As her symptoms have for the home resolved, she will follow up for repeat hCG and probable ultrasound. The patient states she will call her roll bucker, Dr. Newsome and plans to see him in 2 days. We discussed the appropriate return parameters. - Lab Data Lab Results 05/08/22 05/08/22 05/08/22 Range/Units 21:59 22:10 22:10 HCG, Quant 23.1 mIU/mL Urine Color Yellow Urine Appearance Clear (Clear) Urine pH 6.0 (5.0-8.0) Ur Specific [place] 1.020 (1.001-1.035) Urine Protein Negative (Negative) Urine Glucose (UA) Negative (Negative) Urine Ketones Trace H (Negative) Urine Blood Large H (Negative) Urine Nitrite Negative (Negative) Urine Bilirubin Negative (Negative) Urine Urobilinogen <2.0 (<2.0) mg/dL Ur Leukocyte Esterase Negative (Negative) Urine RBC <1 (0-5) /hpf Urine WBC 5 (0-5) /hpf Ur Squamous Epith Cells 3 (0-4) /hpf Urine Bacteria Rare H (None) /hpf Urine Mucus Rare H (None) /hpf Blood Type O Positive Blood Type Recheck O Pos Bld Type Recheck Status No Disposition Clinical Impression: Threatened Disposition: HOME SELF-CARE Condition: Good Instructions (If sedation given, give patient instructions): Threatened Miscarriage (ED) Is patient prescribed a controlled substance at d/c from ED?: No Referrals: Vitor Grimes DO [Primary Care Provider] - 1-2 days
[2022-05-08 22:34] LABS: Appearance,Urine Clear (Clear); Bacteria,Urine Rare /hpf; Bilirubin,Urine Negative (Negative); Blood,Urine Large (Negative); Color,Urine Yellow; Glucose,Urine (UA) Negative (Negative); Ketones,Urine Trace (Negative); Leukocyte Esterase,Urine Negative (Negative); Mucus,Urine Rare /hpf; Nitrite,Urine Negative (Negative); Protein,Urine Negative (Negative); RBC,Urine <1 /hpf (0-5); Squamous Epithelial Cell,Urine 3 /hpf (0-4); Urobilinogen,Urine <2.0 mg/dL (<2.0); WBC,Urine 5 /hpf (0-5)
== END 2022-05-08 23:51 | disposition home or self-care (01) ==
LOC: EC 21:08
DX: O20.0 Threatened abortion (principal); O99.330 Smoking (tobacco) complicating pregnancy, unspecified trimester; Z3A.00 Weeks of gestation of pregnancy not specified; F17.290 Nicotine dependence, other tobacco product, uncomplicated; Z67.40 Type O blood, Rh positive
CPT/HCPCS: 36415; 81001; 84702; 86900; 86901; 99284

== ENCOUNTER → 2022-05-20 | Outpatient (CLI) | payer BC, OTHER | END | disposition home or self-care (01) | LOC: LABWHC1 07:54 | PROVIDERS: ATTEND Obstetrics & Gynecology | DX: O03.9 Complete or unspecified spontaneous abortion without complication (principal); Z3A.00 Weeks of gestation of pregnancy not specified | CPT/HCPCS: 36415; 84702 ==

== ENCOUNTER → 2022-05-21 | Outpatient (CLI) | payer BC, OTHER ==
[2022-05-21 15:45] LABS: Albumin 4.5 g/dL (3.5-5.0); Albumin/Globulin Ratio 1.7; Bilirubin,Unconjugated 0.1 mg/dL (0.0-1.1); Globulin 2.7 g/dL; Total Bilirubin 0.3 mg/dL (0.2-1.3); Total Protein 7.2 g/dL (6.3-8.2)
== END | disposition home or self-care (01) ==
LOC: LABPAT 14:46
PROVIDERS: ATTEND Obstetrics & Gynecology
DX: O03.4 Incomplete spontaneous abortion without complication (principal)
CPT/HCPCS: 80076; 86850; 86900; 86901

== ENCOUNTER → 2022-05-22 | Outpatient (CLI) | payer BC, OTHER ==
[~2022-05-22] MED LIST: METHOTREXATE SODIUM (PF) 25 MG/ML 2 ML VIAL IM NR
[2022-05-22 14:27] VITALS: BP 120/64; PULSE 85; RESP 16; TEMP 97.8
== END ==
LOC: PROCWHC3 14:21
PROVIDERS: ATTEND Obstetrics & Gynecology
DX: O00.90 Unspecified ectopic pregnancy without intrauterine pregnancy (principal); O99.330 Smoking (tobacco) complicating pregnancy, unspecified trimester; F17.200 Nicotine dependence, unspecified, uncomplicated; Z3A.00 Weeks of gestation of pregnancy not specified
CPT/HCPCS: 96402; J9260

== ENCOUNTER → 2022-05-29 | Outpatient (CLI) | payer BC, OTHER | END | disposition home or self-care (01) | LOC: LABWHC1 08:35 | PROVIDERS: ATTEND Obstetrics & Gynecology | DX: O03.9 Complete or unspecified spontaneous abortion without complication (principal) | CPT/HCPCS: 36415; 84702 ==

== ENCOUNTER → 2022-06-12 | Outpatient (CLI) | payer BC, OTHER ==
[2022-06-12 11:20] VITALS: BP 124/72; PULSE 85; RESP 16; TEMP 98.1
== END ==
LOC: PROCWHC3 10:55
PROVIDERS: ATTEND Obstetrics & Gynecology
DX: O00.90 Unspecified ectopic pregnancy without intrauterine pregnancy (principal); Z3A.00 Weeks of gestation of pregnancy not specified
CPT/HCPCS: 96402; J9260

== ENCOUNTER → 2022-06-12 | Outpatient (CLI) | payer BC, OTHER ==
[2022-06-12 09:26] LABS: HCT 37.3 % (34.0-46.0); HGB 12.2 gm/dL (11.4-16.0); MCH 30.8 pg (25.0-35.0); MCHC 32.6 g/dL (31.0-37.0); MCV 94.4 fL (80.0-100.0); Mean Platelet Volume 8.5; Platelet Count 149 k/uL (150-450); RBC 3.95 m/uL (3.80-5.40); RDW 14.6 % (11.5-15.5); WBC 4.1 k/uL (3.8-10.6)
== END | disposition home or self-care (01) ==
LOC: LABWHC1 08:54
PROVIDERS: ATTEND Obstetrics & Gynecology
DX: O00.90 Unspecified ectopic pregnancy without intrauterine pregnancy (principal)
CPT/HCPCS: 36415; 84702; 85027

== ENCOUNTER → 2022-07-25 | Outpatient (CLI) | payer BC, OTHER ==
[2022-07-26 05:02] LABS: Cancer Antigen 125 9.2 U/mL (0.0-30.1); HCG,Quantitative Serum <3.0 (0.0-6.0)
== END | disposition home or self-care (01) ==
LOC: LABWHC1 16:02
PROVIDERS: ATTEND Obstetrics & Gynecology
DX: N83.209 Unspecified ovarian cyst, unspecified side (principal)
CPT/HCPCS: 36415; 84702; 86304

== ENCOUNTER 2022-12-30 12:34 | Emergency (ER) | payer BC, OTHER ==
--- NOTE | 2022-12-30 14:52 | ED ---
Female Urogenital HPI - General Source: patient, RN notes reviewed Mode of arrival: ambulatory Limitations: no limitations - History of Present Illness MD Complaint: vaginal bleeding, pelvic pain Onset/Timin -: days(s) <Alexia Levin - Last Filed: 12/30/22 14:50> <Ana Pan - Last Filed: 12/30/22 23:12> - General Chief complaint: Vaginal Bleeding Stated complaint: miscarriage complications Time Seen by Provider: 12/30/22 14:17 - History of Present Illness Initial comments: This is a 27-year-old female who presents to the emergency department for vaginal bleeding pelvic cramping. Patient had a miscarriage approximately 6 days ago and she was about 8 weeks along at the time. She has continued to have very heavy bleeding and left lower quadrant pain/cramping. Denies any associated nausea/vomiting. She spoke with her SAMPLE BOOK MAKER, Dr. Newsome, who advised she come to the emergency department for evaluation to ensure that there are no retained products. Denies any chest pain, SOB, or back pain. (Alexia Levin) Quick note reviewed: This is a 27-year-old female who presents to the emergency department with a chief complaint of vaginal bleeding. Patient reports that she was told she was having a miscarriage approximately 6 days ago. She reports that she is approximately 8 weeks along. She reports that she has had continued bleeding and left lower quadrant pain. She denies any headache, dizziness, lightheadedness, shortness of breath, palpitations. She reports that her SAMPLE [employer] MAKER Dr. Newsome. She reports that Dr. Newsome recommended she be evaluated in order to get a pelvic ultrasound to rule out any retained products of conception. (Ana Pan) - Related Data Home Medications Medication Instructions Recorded Confirmed Citalopram Hydrobromide 40 mg PO HS 05/08/22 12/30/22 [Citalopram HBr] Ferrous Sulfate [Feosol] 325 mg PO HS 05/08/22 12/30/22 Allergies Allergy/AdvReac Type Severity Reaction Status Date / Time No Known Allergies Allergy Verified 12/30/22 12:46 Review of Systems ROS Other: All systems not noted in ROS Statement are negative. <Alexia Levin - Last Filed: 12/30/22 14:50> ROS Other: All systems not noted in ROS Statement are negative. <PauloadryAna zepeda - Last Filed: 12/30/22 23:12> ROS Statement: Those systems with pertinent positive or pertinent negative responses have been documented in the HPI. Past Medical History Additional Past Medical History / Comment(s): polycystic ovarian, IBS History of Any Multi-Drug Resistant Organisms: None Reported Past Surgical History: Appendectomy, Section Additional Past Surgical History / Comment(s): cyst removal on ovaries Past Anesthesia/Blood Transfusion Reactions: No Reported Reaction Past Psychological History: Anxiety, Depression Smoking Status: Vaper Past Alcohol Use History: Occasional Past Drug Use History: Marijuana - Past Family History Mother Family Medical History: Diabetes Mellitus Father Family Medical History: Blood Disorder Additional Family Medical History / Comment(s): stated per pt, "father from blood clots." <Alexia Levin - Last Filed: 12/30/22 14:50> General Exam Limitations: no limitations General appearance: alert, in no apparent distress Head exam: Present: atraumatic, normocephalic, normal inspection Respiratory exam: Present: normal lung sounds bilaterally. Absent: respiratory distress, wheezes, rales, rhonchi, stridor Cardiovascular Exam: Present: regular rate, normal rhythm, normal heart sounds. Absent: systolic murmur, diastolic murmur, rubs, gallop, clicks GI/Abdominal exam: Present: soft, tenderness (LLQ), normal bowel sounds. Absent: distended Neurological exam: Present: alert, oriented X3, CN II-XII intact Psychiatric exam: Present: normal affect, normal mood Skin exam: Present: warm, dry, intact, normal color. Absent: rash <Alexia Levin - Last Filed: 12/30/22 14:50> General appearance: alert, in no apparent distress Head exam: Present: atraumatic, normocephalic, normal inspection Eye exam: Present: normal appearance, PERRL, EOMI. Absent: scleral icterus, conjunctival injection, periorbital swelling ENT exam: Present: normal exam, mucous membranes moist Neck exam: Present: normal inspection. Absent: tenderness, meningismus, lymphadenopathy Respiratory exam: Present: normal lung sounds bilaterally. Absent: respiratory distress, wheezes, rales, rhonchi, stridor Cardiovascular Exam: Present: regular rate, normal rhythm, normal heart sounds. Absent: systolic murmur, diastolic murmur, rubs, gallop, clicks GI/Abdominal exam: Present: soft, normal bowel sounds. Absent: distended, tenderness, guarding, rebound, rigid Speculum exam: Present: other (external exam is without any rashes, lesions, erythema. Vaginal canal with scant blood, and clearable clots. Cervical os is visualized and is closed. no cervical motion tenderness or adnexal tenderness. Pelvic exam performed with Tran song RN present. ) Extremities exam: Present: normal inspection, full ROM, normal capillary refill. Absent: tenderness, pedal edema, joint swelling, calf tenderness Back exam: Present: normal inspection Neurological exam: Present: alert, oriented X3, CN II-XII intact Psychiatric exam: Present: normal affect, normal mood Skin exam: Present: warm, dry, intact, normal color. Absent: rash <Ana Pan - Last Filed: 12/30/22 23:12> Course Vital Signs 12/30/22 12/30/22 12/30/22 12:44 15:30 16:42 Temperature 97.9 F Pulse Rate 80 78 81 Respiratory 18 17 17 Rate Blood Pressure 123/76 116/71 118/75 O2 Sat by Pulse 99 96 97 Oximetry 12/30/22 18:08 Temperature 98.2 F Pulse Rate 77 Respiratory 16 Rate Blood Pressure 112/72 O2 Sat by Pulse 96 Oximetry Medical Decision Making - Radiology Data Radiology results: report reviewed, image reviewed <Alexia Levin - Last Filed: 12/30/22 14:50> - Lab Data Result diagrams: 12/30/22 15:09 12/30/22 15:09 <Ana Pan - Last Filed: 12/30/22 23:12> - Medical Decision Making This is a 27-year-old female who presents to the emergency department for vaginal bleeding. Was pt. sent in by a medical professional or institution? @ -No Did you speak to anyone other than the patient for history? @ -No Did you review nursing and triage notes? @ -Yes, and I agree, it is accurate with regards to the patient's symptoms. Were old charts reviewed? @ -No Differential Diagnosis? @ -Differential Vaginal Bleeding: Spontaneous , threatened , molar , ectopic , incompetent cervix, placenta previa, uterine rupture, dysfunctional uterine bleeding, hemorrhage, uterine fibroids, malignancy, coagulopathy, PID, cervicitis, adenomyosis, vaginal trauma, this is not meant to be an all-inclusive list. CT interpreted by me (1pt min.)? @ -[none] U/S interpreted by me (1pt. min.)? @ -[none] What testing was considered but not performed? (CT, X-rays, U/S, labs)? Why? @ -None What meds were considered but not given? Why? @ -None Did you discuss the management of the patient with other professionals? @ -No Did you reconcile home meds? @ -No Was smoking cessation discussed for >3mins.? @ -No Was critical care preformed (if so, how long)? @ -No Were there social determinants of health that impacted care today? How? (Homelessness, low income, unemployed, alcoholism, drug addiction, transportation, low edu. Level, literacy, decrease access to med. care, usp, rehab)? @ -No Was there de-escalation of care discussed even if they declined? (Discuss DNR or withdrawal of care, Hospice)? @ -No What co-morbidities impacted this encounter? (DM, HTN, Smoking, COPD, CAD, Cancer, CVA, Hep., AIDS, mental health diagnosis, sleep apnea, morbid obesity)? @ -[DM, HTN, Smoking, COPD, CAD, Cancer, CVA, Hep., AIDS, mental health diagnosis, sleep apnea, morbid obesity?] Was patient admitted / discharged? @ -[hospital course] Undiagnosed new problem with uncertain prognosis? @ -None Drug Therapy requiring intensive monitoring for toxicity (Heparin, Nitro, Insulin, Cardizem)? @ -None Were any procedures done? @ -None Diagnosis/symptom? @ -[default] Acute, or Chronic, or Acute on Chronic? @ -[default] Uncomplicated (without systemic symptoms) or Complicated (systemic symptoms)? @ -[default] Side effects of treatment? @ -[none] Exacerbation, Progression, or Severe Exacerbation] @ -Not applicable Poses a threat to life or bodily function? @ -[no] (Alexia Levin) Was pt. sent in by a medical professional or institution (Dr., PA, INFORMATION SYSTEMS ARCHITECT, urgent care, hospital, or senior living...) When possible be specific @ -[No] Did you speak to anyone other than the patient for history (EMS, parent, family, police, friend...)? What history was obtained from this source @ -[No] Did you review nursing and triage notes (agree or disagree)? Why? @ -[I reviewed and agree with nursing and triage notes] Were old charts reviewed (outside hosp., previous admission, EMS record, old EKG, old radiological studies, urgent care reports/EKG's, senior living records)? Report findings @ -[No old charts were reviewed] Differential Diagnosis (chest pain, altered mental status, abdominal pain women, abdominal pain men, vaginal bleeding, weakness, fever, dyspnea, syncope, headache, dizziness, GI bleed, back pain, seizure, CVA, palpatations, mental health, musculoskeletal)? @ -[not applicable] EKG interpreted by me (3pts min.). @ -[As above] X-rays interpreted by me (1pt min.). @ -[None done] CT interpreted by me (1pt min.). @ -[None done] U/S interpreted by me (1pt. min.). @ -[None done] What testing was considered but not performed or refused? (CT, X-rays, U/S, labs)? Why? @ -[None] What meds were considered but not given or refused? Why? @ -[None] Did you discuss the management of the patient with other professionals (professionals i.e. MELISSA Daniels, INFORMATION SYSTEMS ARCHITECT, lab, RT, psych nurse, social contact worker, americanization teacher, teacher, community liaison officer, rn case manager)? Give summary @ -Case discussed with Dr. Thrasher, SAMPLE BOOK MAKER on-call who recommends the patient has beta hCG levels drawn in 48 hours to ensure levels are trending down Was smoking cessation discussed for >3mins.? @ -[No] Was critical care preformed (if so, how long)? @ -[No] Were there social determinants of health that impacted care today? How? (Homelessness, low income, unemployed, alcoholism, drug addiction, transportation, low edu. Level, literacy, decrease access to med. care, usp, rehab)? @ -[No] Was there de-escalation of care discussed even if they declined (Discuss DNR or withdrawal of care, Hospice)? DNR status @ -[No] What co-morbidities impacted this encounter? (DM, HTN, Smoking, COPD, CAD, Cancer, CVA, ARF, Chemo, Hep., AIDS, mental health diagnosis, sleep apnea, morbid obesity)? @ -[None] Was patient admitted / discharged? Hospital course, mention meds given and route, prescriptions, significant lab abnormalities, going to OR and other pertinent info. @ -Discharged. This is a 27-year-old female who presents the emergency department with chief complaint of vaginal bleeding. Patient had a thorough history and physical exam performed while in the ED. Physical exam is essentially unremarkable heart rate regular rate and rhythm, lungs clear to auscultation bilaterally abdomen is soft and nontender. Pelvic exam reveals small amount of blood in the vaginal canal with clearable clots, cervical os is open. There is no adnexal tenderness. Patient's vital signs remained stable while in the ED. Patient had lab work and imaging performed: Labs remarkable for WBC 7.3, hemoglobin 13.2, coags within normal limits, BMP unremarkable BUN 10, creatinine 0.47 Urinalysis with large amount of blood and greater than 182 RBCs likely due to patient's vaginal bleeding Pelvic ultrasound results reveals Heterogeneous thickened endometrium that measures up to 1.5 cm thick there is no associated vascularity I discussed the results in detail with the patient verbalized understanding. All questions and concerns were addressed. Return precautions were discussed at length. She was encouraged to have a serial hCG level drawn in 48 hours. She was encouraged to follow up with her SAMPLE BOOK MAKER tomorrow. She was discharged in stable condition. Case discussed with TATI Carreon who agrees with plan of care Undiagnosed new problem with uncertain prognosis? @ -[No] Drug Therapy requiring intensive monitoring for toxicity (Heparin, Nitro, Insulin, Cardizem)? @ -[No] Were any procedures done? @ -[No] Diagnosis/symptom? @ -vaginal bleeding - missed Acute, or Chronic, or Acute on Chronic? @ -acute Uncomplicated (without systemic symptoms) or Complicated (systemic symptoms)? @ -uncomplicated Side effects of treatment? @ -[No] Exacerbation, Progression, or Severe Exacerbation? @ -[No] Poses a threat to life or bodily function? How? (Chest pain, [place], [place], pneumonia, PE, COPD, DKA, ARF, appy, cholecystitis, CVA, Diverticulitis, Homicidal, Suicidal, threat to staff... and all critical care pts) @ -low likelihood (Ana Pan) - Lab Data Lab Results 12/30/22 12/30/22 12/30/22 Range/Units 15:09 15:09 15:09 WBC 7.3 (3.8-10.6) k/uL RBC 4.05 (3.80-5.40) m/uL Hgb 13.2 (11.4-16.0) gm/dL Hct 38.6 (34.0-46.0) % MCV 95.2 (80.0-100.0) fL MCH 32.5 (25.0-35.0) pg MCHC 34.1 (31.0-37.0) g/dL RDW 12.2 (11.5-15.5) % Plt Count 158 (150-450) k/uL MPV 8.5 Neutrophils % 71 % Lymphocytes % 22 % Monocytes % 4 % Eosinophils % 2 % Basophils % 1 % Neutrophils # 5.2 (1.3-7.7) k/uL Lymphocytes # 1.6 (1.0-4.8) k/uL Monocytes # 0.3 (0-1.0) k/uL Eosinophils # 0.2 (0-0.7) k/uL Basophils # 0.1 (0-0.2) k/uL PT (9.0-12.0) sec INR (<1.2) APTT (22.0-30.0) sec Sodium 138 (137-145) mmol/L Potassium 4.2 (3.5-5.1) mmol/L Chloride 111 H (98-107) mmol/L Carbon Dioxide 22 (22-30) mmol/L Anion Gap 5 mmol/L BUN 10 (7-17) mg/dL Creatinine 0.47 L (0.52-1.04) mg/dL Est GFR (CKD-EPI)AfAm >90 (>60 ml/min/1.73 sqM) Est GFR (CKD-EPI)NonAf >90 (>60 ml/min/1.73 sqM) Glucose 85 (74-99) mg/dL Calcium 8.8 (8.4-10.2) mg/dL Total Bilirubin 0.3 (0.2-1.3) mg/dL AST 92 H (14-36) U/L ALT 138 H (4-34) U/L Alkaline Phosphatase 60 (38-126) U/L Total Protein 6.7 (6.3-8.2) g/dL Albumin 4.0 (3.5-5.0) g/dL HCG, Quant 1549.7 mIU/mL Urine Color Light Red Urine Appearance Cloudy H (Clear) Urine pH 6.0 (5.0-8.0) Ur Specific [place] 1.031 (1.001-1.035) Urine Protein 2+ H (Negative) Urine Glucose (UA) Negative (Negative) Urine Ketones Negative (Negative) Urine Blood Large H (Negative) Urine Nitrite Negative (Negative) Urine Bilirubin Negative (Negative) Urine Urobilinogen <2.0 (<2.0) mg/dL Ur Leukocyte Esterase Small H (Negative) Urine RBC >182 H (0-5) /hpf Urine WBC 5 (0-5) /hpf Ur Squamous Epith Cells 5 H (0-4) /hpf Urine Bacteria Rare H (None) /hpf Urine Mucus Many H (None) /hpf 12/30/22 Range/Units 15:09 WBC (3.8-10.6) k/uL RBC (3.80-5.40) m/uL Hgb (11.4-16.0) gm/dL Hct (34.0-46.0) % MCV (80.0-100.0) fL MCH (25.0-35.0) pg MCHC (31.0-37.0) g/dL RDW (11.5-15.5) % Plt Count (150-450) k/uL MPV Neutrophils % % Lymphocytes % % Monocytes % % Eosinophils % % Basophils % % Neutrophils # (1.3-7.7) k/uL Lymphocytes # (1.0-4.8) k/uL Monocytes # (0-1.0) k/uL Eosinophils # (0-0.7) k/uL Basophils # (0-0.2) k/uL PT 9.4 (9.0-12.0) sec INR 0.9 (<1.2) APTT 22.7 (22.0-30.0) sec Sodium (137-145) mmol/L Potassium (3.5-5.1) mmol/L Chloride (98-107) mmol/L Carbon Dioxide (22-30) mmol/L Anion Gap mmol/L BUN (7-17) mg/dL Creatinine (0.52-1.04) mg/dL Est GFR (CKD-EPI)AfAm (>60 ml/min/1.73 sqM) Est GFR (CKD-EPI)NonAf (>60 ml/min/1.73 sqM) Glucose (74-99) mg/dL Calcium (8.4-10.2) mg/dL Total Bilirubin (0.2-1.3) mg/dL AST (14-36) U/L ALT (4-34) U/L Alkaline Phosphatase (38-126) U/L Total Protein (6.3-8.2) g/dL Albumin (3.5-5.0) g/dL HCG, Quant mIU/mL Urine Color Urine Appearance (Clear) Urine pH (5.0-8.0) Ur Specific [place] (1.001-1.035) Urine Protein (Negative) Urine Glucose (UA) (Negative) Urine Ketones (Negative) Urine Blood (Negative) Urine Nitrite (Negative) Urine Bilirubin (Negative) Urine Urobilinogen (<2.0) mg/dL Ur Leukocyte Esterase (Negative) Urine RBC (0-5) /hpf Urine WBC (0-5) /hpf Ur Squamous Epith Cells (0-4) /hpf Urine Bacteria (None) /hpf Urine Mucus (None) /hpf Disposition <Alexia Levin - Last Filed: 12/30/22 14:50> Is patient prescribed a controlled substance at d/c from ED?: No Time of Disposition: 18:13 <Ana Pan - Last Filed: 12/30/22 23:12> Clinical Impression: Vaginal bleeding Disposition: HOME SELF-CARE Condition: Stable Instructions (If sedation given, give patient instructions): Threatened Miscarriage (ED) Additional Instructions: Please return to the nearest emergency department if symptoms worsen or persist Referrals: Vitor Grimes DO [Primary Care Provider] - 1-2 days Declan Newsome MD [STAFF PHYSICIAN] - 1-2 days
[2022-12-30 15:34] LABS: Basophils # (A) 0.1 k/uL (0-0.2); Basophils % (A) 1 %; Eosinophils # (A) 0.2 k/uL (0-0.7); Eosinophils % (A) 2 %; HCT 38.6 % (34.0-46.0); HGB 13.2 gm/dL (11.4-16.0); Lymphocytes # (A) 1.6 k/uL (1.0-4.8); Lymphocytes % (A) 22 %; MCH 32.5 pg (25.0-35.0); MCHC 34.1 g/dL (31.0-37.0); MCV 95.2 fL (80.0-100.0); Mean Platelet Volume 8.5; Monocytes # (A) 0.3 k/uL (0-1.0); Monocytes % (A) 4 %; Neutrophils # (A) 5.2 k/uL (1.3-7.7); Neutrophils % (A) 71 %; Platelet Count 158 k/uL (150-450); RBC 4.05 m/uL (3.80-5.40); RDW 12.2 % (11.5-15.5); WBC 7.3 k/uL (3.8-10.6)
[2022-12-30 15:46] LABS: ALT 138 U/L (4-34); AST 92 U/L (14-36); African American GFR (CKD) >90 (>60 ml/min/1.73 sqM); Alkaline Phosphatase 60 U/L (38-126); Anion Gap 5 mmol/L; Blood Urea Nitrogen 10 mg/dL (7-17); Calcium 8.8 mg/dL (8.4-10.2); Carbon Dioxide 22 mmol/L (22-30); Chloride 111 mmol/L (98-107); Glucose 85 mg/dL (74-99); Non-African American GFR(CKD) >90 (>60 ml/min/1.73 sqM); Potassium 4.2 mmol/L (3.5-5.1); Sodium 138 mmol/L (137-145); Total Bilirubin 0.3 mg/dL (0.2-1.3); Total Protein 6.7 g/dL (6.3-8.2)
[2022-12-30 16:01] LABS: HCG,Quantitative Serum 1549.7 mIU/mL; INR 0.9 (<1.2); Partial Thromboplastin Time 22.7 sec (22.0-30.0); Prothrombin Time 9.4 sec (9.0-12.0)
[2022-12-30 16:26] LABS: Appearance,Urine Cloudy (Clear); Bacteria,Urine Rare /hpf; Bilirubin,Urine Negative (Negative); Blood,Urine Large (Negative); Color,Urine Light Red; Glucose,Urine (UA) Negative (Negative); Ketones,Urine Negative (Negative); Leukocyte Esterase,Urine Small (Negative); Mucus,Urine Many /hpf; Nitrite,Urine Negative (Negative); Protein,Urine 2+ (Negative); RBC,Urine >182 /hpf (0-5); Specific Gravity,Urine 1.031 (1.001-1.035); Squamous Epithelial Cell,Urine 5 /hpf (0-4); Urobilinogen,Urine <2.0 mg/dL (<2.0); WBC,Urine 5 /hpf (0-5)
--- NOTE | 2022-12-30 16:27 | US ---
EXAMINATION TYPE: US transvaginal plus Dopplers DATE OF EXAM: 12/30/2022 COMPARISON: NONE CLINICAL HISTORY: 27-year-old female Pelvic pain and bleeding, recent miscarriage. Miscarriage at 8 w eeks gestation, Pt states heavy vaginal bleeding with clots that started 5 days ago TECHNIQUE: Transvaginal (TV). Transvaginal sonographic images of the pelvis were acquired. Color Do ppler and spectral waveform analysis of the ovarian arteries and veins. FINDINGS: EXAM MEASUREMENTS: Uterus: 10.7 x 5.2 x 7.0 cm Endometrial Stripe: 1.5 cm Right Ovary: Unable to visualize Left Ovary: 3.6 x 2.8 x 3.1 cm 1. Uterus: Anteverted and otherwise wnl 2. Endometrium: Heterogeneous, thickened, no evidence of increased blood flow. 3. Right Ovary: Unable to visualize 4. Left Ovary: Probable corpus luteal cyst= 1.9 x 1.7 x 2.1 cm Spectral, color and waveform doppler imaging shows good arterial and venous flow within the left ov adam; there is no evidence for left ovarian torsion. 5. Bilateral Adnexa: wnl 6. Posterior cul-de-sac: wnl IMPRESSION: 1. Heterogeneous, thickened endometrium measuring up to 1.5 cm thick. No associated vascularity. Mark elate for prominent retained hemorrhagic material. Retained products of conception are also possible but the lack of vascularity makes it less likely. 2. A 2.1 cm corpus luteum of the left ovary. No sonographic evidence for ovarian torsion. 3. Unable to visualize the right ovary.
[2022-12-30] MEDS ORDERED: SODIUM CHLORIDE 0.9% 1,000 ML IV ONE (16:32)
[2022-12-30 18:09] VITALS: BP 112/72; PULSE 77; RESP 16; TEMP 98.2
== END 2022-12-30 18:35 | disposition home or self-care (01) ==
LOC: EC 12:34
DX: O46.91 Antepartum hemorrhage, unspecified, first trimester (principal); O9A.511 Psychological abuse complicating pregnancy, first trimester; O99.331 Smoking (tobacco) complicating pregnancy, first trimester; F32.A Depression, unspecified; F41.9 Anxiety disorder, unspecified; F17.290 Nicotine dependence, other tobacco product, uncomplicated; F12.90 Cannabis use, unspecified, uncomplicated; Z3A.08 8 weeks gestation of pregnancy
CPT/HCPCS: 36415; 76830; 80053; 81001; 84702; 85025; 85610; 85730; 93976; 96360; 99284

== ENCOUNTER → 2023-01-01 | Outpatient (CLI) | payer BC, OTHER | END | disposition home or self-care (01) | LOC: LABWHC1 14:33 | PROVIDERS: ATTEND Student in an Organized Health Care Education/Training Program | DX: O20.0 Threatened abortion (principal); Z3A.00 Weeks of gestation of pregnancy not specified | CPT/HCPCS: 36415; 84702 ==

== ENCOUNTER 2023-01-06 05:51 | Day surgery (SDC) | payer BC, OTHER ==
[2023-01-03 11:52] VITALS: BMI 29.2
--- NOTE | 2023-01-05 07:11 | P.HPOB ---
History of Present Illness H&P Date: 01/05/23 Chief Complaint: Vaginal bleeding in , incomplete This patient is a pleasant 27-year-old 3 para 1 female who presented to my office in follow-up from the emergency department for vaginal bleeding and . Patient and her have been attempting and was scheduled to see me for this began bleeding and passing tissue at home. Patient went to the emergency department on the and beta hCG was 1550. Ultrasound showed endometrial thickening of 1.5 cm with possible retained products of conception. Patient's repeat beta hCG had dropped to 632 however she continues to have cramping and bleeding and at this time is requesting suction D&C for treatment. Review of Systems Genitourinary: Reports abnormal vaginal bleeding, Reports Menstruation: Reports as per HPI Past Medical History Additional Past Medical History / Comment(s): polycystic ovarian, IBS, ANEMIA,PREVIOUS ECTOPIC PREG - NO SURGERY NEEDED History of Any Multi-Drug Resistant Organisms: None Reported Past Surgical History: Appendectomy, Section Additional Past Surgical History / Comment(s): cyst removal on ovaries, Past Anesthesia/Blood Transfusion Reactions: No Reported Reaction Smoking Status: Vaper - Past Family History Mother Family Medical History: Diabetes Mellitus Father Family Medical History: Blood Disorder, Deep Vein Thrombosis (DVT) Additional Family Medical History / Comment(s): stated per pt, "father from blood clots." DVT -CLOT TRAVELED TO HIS HEART. Medications and Allergies Home Medications Medication Instructions Recorded Confirmed Type Citalopram Hydrobromide 40 mg PO HS 05/08/22 01/03/23 History [Citalopram HBr] Ferrous Sulfate [Feosol] 325 mg PO HS 05/08/22 01/03/23 History Allergies Allergy/AdvReac Type Severity Reaction Status Date / Time No Known Allergies Allergy Verified 01/03/23 11:28 Exam - OBG Physical Exam Vulva: both: normal Vagina: normal moisture, no discharge Uterus: enlarged Results Ultrasound and beta hCG as above. Patient's blood type is Rh+ Assessment and Plan Assessment: This is a pleasant 27-year-old 3 para 1 female with first trimester bleeding and findings consistent with an incomplete . I discussed options with patient including continued observation with serial hCGs versus surgical intervention due to possible retained products of conception. Patient's requested suction D&C for treatment. I did discuss this procedure with the patient and her and she understands this procedure and risks and risks of infection, bleeding, possible uterine perforation. All the patient's questions are answered and a written consent is obtained. (1) Incomplete Status: Acute Code(s): O03.4 - INCOMPLETE SPONTANEOUS WITHOUT COMPLICATION SNOMED Code(s): 329740862
[~2023-01-06 05:51] MED LIST changes: -METHOTREXATE SODIUM (PF) 25 MG/ML 2 ML VIAL IM NR; +Pre Op ABX Message 1 EACH MISC MISCELLANE ONE
[2023-01-06] MEDS ORDERED: DEXAMETHASONE SOD PHOSPHATE 4 MG/ML 1 ML VIAL IV ONE (05:54)
[2023-01-06] MEDS ORDERED: SCOPOLAMINE 1 MG/72 HR PATCH TRANSDERM ONE (05:54)
[2023-01-06] MEDS ORDERED: LIDOCAINE 1% (10MG/ML) FOR IV START INTRADERMA PRN (05:54)
[2023-01-06] MEDS ORDERED: ONDANSETRON 4 MG/2 ML VIAL IVP ONE (05:54)
[2023-01-06] MEDS ORDERED: HYDROmorphone 0.5 MG/0.5 ML SYRINGE IVP PRN (05:54)
[2023-01-06] MEDS ORDERED: LACTATED RINGERS 1,000 ML IV SCH (05:54)
[2023-01-06] MEDS ORDERED: LACTATED RINGERS 1,000 ML IV ONE (06:11)
[2023-01-06] MEDS ORDERED: MIDAZOLAM 2 MG/2 ML VIAL IV ONE (06:35)
[2023-01-06] MEDS ORDERED: PROPOFOL 10 MG/ML 20 ML VIAL IV ONE (06:50)
[2023-01-06] MEDS ORDERED: MIDAZOLAM 2 MG/2 ML VIAL ONE (06:50)
[2023-01-06] MEDS ORDERED: fentaNYL (PF) 50 MCG/ML 2 ML AMP ONE (06:50)
[2023-01-06] MEDS ORDERED: KETOROLAC 15 MG/ML 1 ML VIAL ONE (06:50)
[2023-01-06] MEDS ORDERED: LIDOCAINE 2% INJ 20 MG/ML (2 ML VIAL) ONE (06:50)
--- NOTE | 2023-01-06 07:20 | P.OP ---
Date of Procedure: 01/06/23 Preoperative Diagnosis: Incomplete Postoperative Diagnosis: Same Procedure(s) Performed: Suction D&C Anesthesia: other (LMA) Surgeon: Declan Newsome Estimated Blood Loss (ml): 50 Urine output (ml): 50 Pathology: other (Uterine contents) Condition: stable Disposition: PACU Indications for Procedure: Please see dictated H&P for intimate details of this patient's admission. In brief summary this is a pleasant 27-year-old who was seen mo for and began having bleeding and cramping went to the emergency department. Patient was found to have a incomplete with possible retained products on ultrasound. Patient continued to have bleeding cramping is requesting suction D&C for treatment. Patient understands this procedure and risks and risks of infection, bleeding, possible uterine perforation. All the patient's questions are answered and a written consent is obtained. Operative Findings: Patient uterine contents consistent with retained products of conception Description of Procedure: This patient is taken to the operating room where she is laid in supine position. She subsequently undergoes general anesthesia without incident. With an adequate level of anesthesia she is placed in the dorsal lithotomy position and has a vaginal and perineal prep and drape. Examination under anesthesia shows a mid position uterus slightly enlarged. A weighted speculum was placed in the posterior vagina. Bladder is drained for 50 mL of clear urine. An Allis clamp was then placed on the anterior lip of the cervix. Cervix is then gently dilated to allow a 8 curved suction curette easily into the uterine cavity suction is applied and a moderate amount of tissue is removed. Multiple passes are made to no further tissue was noted. A gentle but thorough 4 quadrant c urettage is then done for no further tissue. With this done a final pass of the suction curet is done. Bleeding is minimal at this time. The procedure is then ended. The Allis clamp and weighted speculum were removed. Patient is awakened from anesthesia and taken to recovery room in satisfactory condition. All counts are correct 3. There are no complications.
[2023-01-06 07:24] VITALS: TEMP 97.5
[2023-01-06 08:48] VITALS: BP 108/62; PULSE 76; RESP 16
== END 2023-01-06 09:28 | disposition home or self-care (01) ==
LOC: OR 05:51
PROVIDERS: ATTEND Obstetrics & Gynecology
DX: O03.4 Incomplete spontaneous abortion without complication (principal); N85.7 Hematometra; D64.9 Anemia, unspecified; K58.9 Irritable bowel syndrome, unspecified; F41.9 Anxiety disorder, unspecified; F17.290 Nicotine dependence, other tobacco product, uncomplicated; Z98.891 History of uterine scar from previous surgery; Z90.49 Acquired absence of other specified parts of digestive tract; Z83.3 Family history of diabetes mellitus; Z83.2 Family history of diseases of the blood and blood-forming organs and certain disorders involving the immune mechanism; Z98.890 Other specified postprocedural states; Z79.899 Other long term (current) drug therapy
CPT/HCPCS: 59812; 86900; 86901; 88305; 86850; 84702; J2250; J1100; J2405; J3010; J1885; J2704; J2001